=== PATIENT | female | born 1930 | race Caucasian/White ===

== ENCOUNTER 2017-08-03 09:54 | Outpatient (CLI) | payer OTHER | END 2017-08-03 10:00 | disposition home or self-care (01) | LOC: NUCLEAR 09:54 | DX: I73.9 Peripheral vascular disease, unspecified (principal) ==

== ENCOUNTER → 2017-08-04 | Outpatient (CLI) | payer OTHER | END | disposition home or self-care (01) | LOC: NUCLEAR 08:12 | DX: I73.9 Peripheral vascular disease, unspecified (principal); I87.2 Venous insufficiency (chronic) (peripheral) ==

== ENCOUNTER 2017-09-24 11:53 | Emergency (ER) | payer OTHER ==
[~2017-09-24] VITALS: Ht 152.4 cm; Wt 74.8 kg
[2017-09-24] MEDS ORDERED: BAYER CHEWABLE81 MG (12:40)
[2017-09-24] MEDS ORDERED: COZAAR50 MG (12:40)
[2017-09-24] MEDS ORDERED: NEURONTIN800 MG (12:41)
[2017-09-24] MEDS ORDERED: VITAMIN D-32000 UNIT (12:41)
[2017-09-24] MEDS ORDERED: INTESTINEX680 M1 (12:41)
[2017-09-24] MEDS ORDERED: SYNTHROID75 MCG (12:42)
== END 2017-09-24 19:13 | disposition home or self-care (01) ==
LOC: ER 11:53
DX: L97.313 Non-pressure chronic ulcer of right ankle with necrosis of muscle (principal)